=== PATIENT | female | born 1965 | race Caucasian/White ===

== ENCOUNTER 2016-11-27 20:40 | Emergency (ER) | payer MEDICARE, OTHER ==
[~2016-11-27] VITALS: Ht 165.1 cm; Wt 86.2 kg
[~2016-11-27 20:40] MED LIST: ALPR1T PO; ATOR20TA66 PO; ATOR40TA70 PO; CYCL10TA9 PO; DULO60CA6 PO; ESTR1TAB24 PO; HYDR-3820 PO; HYDR118S10 PO; MELO15TA14 PO; ONDA8TAB13 PO; PNT40TEC PO; PRD20T PO; ROPI2TAB PO; TRAZ150T42 PO; ZOLP10TA5 PO
[2016-11-27] MEDS ORDERED: KETOROLAC 30 MG/ML VIAL IVP STA (21:03)
[2016-11-27] MEDS ORDERED: LACTATED RINGERS 1,000 ML IV ONE (21:03)
[2016-11-27] MEDS ORDERED: ONDANSETRON 4 MG/2 ML (SDV) Z0FRAN IVP ONE (21:15)
[2016-11-27 21:24] LABS: BILIRUBIN,URINE NEGATIVE (NEGATIVE); KETONES,URINE NEGATIVE (NEGATIVE); LEUKOCYTE ESTERASE ,URINE NEGATIVE (NEGATIVE); NITRITE,URINE NEGATIVE (NEGATIVE); PH,URINE 6 (5-9); PROTEIN,URINE NEGATIVE (NEGATIVE); UROBILINOGEN,URINE NORMAL (NORMAL)
[2016-11-27 21:28] LABS: BASOPHILS % (AUTO) 0 % (0-10); EOSINOPHILS # (AUTO) 0.1 10^3/uL (0.0-0.3); EOSINOPHILS % (AUTO) 1 % (0-10); LYMPHOCYTES # (AUTO) 2.1 X 10^3 (1.0-4.0); LYMPHOCYTES % (AUTO) 35 % (12-44); MEAN CORPUSCULAR HEMOGLOBIN 31 PG (25-34); MEAN CORPUSCULAR HGB CONC 35 G/DL (32-36); MEAN CORPUSCULAR VOLUME 90 FL (80-99); MEAN PLATELET VOLUME 10.7 FL (7.4-10.4); MONOCYTES # (AUTO) 0.5 X 10^3 (0.0-1.0); MONOCYTES % (AUTO) 9 % (0-12); NEUTROPHILS # (AUTO) 3.3 X 10^3 (1.8-7.8); NEUTROPHILS % (AUTO) 55 % (42-75); PLATELET COUNT 226 10^3/uL (130-400); RED BLOOD COUNT 4.34 10^6/uL (4.35-5.85); RED CELL DISTRIBUTION WIDTH 12.4 % (10.0-14.5)
[2016-11-27 21:37] LABS: ALBUMIN 4.2 G/DL (3.2-4.5); BILIRUBIN,TOTAL 0.5 MG/DL (0.1-1.0); CALCIUM 8.9 MG/DL (8.5-10.1); POTASSIUM 3.1 MMOL/L (3.6-5.0); TOTAL PROTEIN 6.5 G/DL (6.4-8.2)
--- NOTE | 2016-11-27 21:40 | Diagnostic Imaging Report ---
PROCEDURE: CT urinary tract, rule out kidney stone. TECHNIQUE: Multiple contiguous axial images were obtained through the abdomen and pelvis without the use of intravenous contrast. INDICATION: Back pain. Nausea The gallbladder is absent. The liver and bile ducts are normal. The spleen, pancreas and adrenals are normal. The kidneys, ureters and bladder are normal. There is no pelvic mass. There are scattered diverticula seen in the colon with no evidence of diverticulitis or other acute bowel abnormality. There is no free intraperitoneal air or fluid. IMPRESSION: No acute abnormality is seen. Dictated by: Dictated on workstation # [id number]
--- NOTE | 2016-11-27 21:42 | Diagnostic Imaging Report ---
INDICATION: Abdominal pain The upright chest shows no abnormality. Supine and upright views of the abdomen shows normal bowel gas pattern. There is no free intraperitoneal air. There is no mass or calculus. There is no acute bony abnormality. IMPRESSION: No acute abnormality is seen. Dictated by: Dictated on workstation # [id number]
--- NOTE | 2016-11-27 21:46 | ED Back Pain ---
General Chief Complaint: Back Problems Stated Complaint: STOMACH/BACK PAIN Nursing Triage Note: PT C/O L FLANK PAIN RADIATING TO HER LLQ SINCE THIS AM. SHE IS ALSO C/O NAUSEA, BUT DENIES VOMITING. PT DENIES DYSURIA,HEMATURIA, OR FREQUENCY. Nursing Sepsis Screen: No Definite Risk Source of Information: Patient History of Present Illness Time Seen by Provider: 20:58 Initial Comments PT C/O LEFT FLANK PAIN, RADIATING TO LLQ SINCE WAKING AT 0400 THIS AM + NAUSEA, NO VOMITING. NO DIARRHEA NO FEVER NO URINARY SYMPTOMS PT HAS CHRONIC BACK PAIN, NECK PAIN AND GENERALIZED PAIN AND TAKES MORPHINE, HYDROCODONE, DILAUDID ( AT LEAST OF 08/15/2016) , MOBIC, CYCLOBENZAPRINE --- STATES SHE HAS NOT TAKEN ANY OF HER MEDICATIONS TODAY--GIVES NO REASON TO WHY NOT PT STATES SHE HAS NOT RAN OUT OF HER PAIN MEDICATIONS--PER [facility], PT FILLED MORPHINE 30 MG #30 ON 11/05/16 AND LORTAB 10/325 #120 ON 11/05/[address] RO IN [place] Allergies and Home Medications Allergies Coded Allergies: niacin (Unverified Allergy, Unknown, 01/28/14) gabapentin (Unverified Adverse Reaction, Unknown, 07/13/15) Home Medications Alprazolam 1 Mg Tab, 1 MG PO BID PRN for ANXIETY, (Reported) Atorvastatin Calcium 20 Mg Tablet, 20 MG PO DAILY, (Reported) Atorvastatin Calcium 40 Mg Tablet, 40 MG PO DAILY, #90 (Reported) Cyclobenzaprine HCl 10 Mg Tablet, 10 MG PO Q8H, #15 Prescribed by: EDEN FREEMAN on 12/27/15 1329 Estradiol 1 Mg Tablet, 1 MG PO DAILY, (Reported) Hydrocodone/Acetaminophen 1 Each Tablet, 1 EACH PO QID PRN for PAIN, (Reported) Meloxicam 15 Mg Tablet, 15 MG PO DAILY, #10 Prescribed by: EDEN FREEMAN on 12/27/15 1329 Ondansetron 8 Mg Tab.rapdis, 8 MG PO Q6H PRN for NAUSEA/VOMITING, #10 Ref 0 Prescribed by: LAUREANO VAZ on 07/13/151999 Pantoprazole Sodium 40 Mg Tablet.dr, 1 TAB PO DAILY, #30 Prescribed by: MOSES MATUTE on 02/01/14 1107 Ropinirole Hcl 2 Mg Tab.sr.24h, 2 MG PO HS, (Reported) Trazodone Hcl Unknown Strength Tablet, 150 MG PO HS PRN for SLEEP, (Reported) Zolpidem Tartrate 10 Mg Tablet, 10 MG PO HS PRN for INSOMNIA, #30 (Reported) Constitutional: no symptoms reported Respiratory: no symptoms reported Cardiovascular: no symptoms reported Gastrointestinal: LLQ, see HPI, abdominal pain, No constipation, No diarrhea, nausea, No vomiting Genitourinary: no symptoms reported Control/STD Prophylaxis: Other (HYST) Musculoskeletal: see HPI, back pain Skin: no symptoms reported, No rash Psychiatric/Neurological: No Symptoms Reported Past Tmvjyia-Ymeogi-Shpxvy Hx Patient Social History Alcohol Use: Denies Use Recreational Drug Use: No Smoking Status: Never a Smoker 2nd Hand Smoke Exposure: No Recent Foreign Travel: No Contact w/Someone Who Travel: No Recent Infectious Disease Expo: No Recent Hopitalizations: No Immunizations Up To Date Date of Influenza Vaccine: Jun 15, 2015 Seasonal Allergies Seasonal Allergies: Yes Surgeries HX Surgeries: Yes (SPINAL FUSION, back surgery x 3, neck surgery x 1, STOMACH "CYSTS" ; HYST /BSO--2 SURGERIES) Surgeries: Appendectomy, Gallbladder, Hysterectomy, Oophorectomy, Orthopedic, Tubal Ligation Respiratory Hx Respiratory Disorders: No Cardiovascular Hx Cardiac Disorders: Yes Cardiac Disorders: Chronic Edema/Swelling, High Cholesterol Neurological Hx Neurological Disorders: Yes (CHRONIC NUMBNESS/TINGLING LEFT 4TH AND F5TH FINGERS) 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 ) Genitourinary Disorders: Renal Failure Gastrointestinal Hx Gastrointestinal Disorders: Yes ("CYSTS" REMOVED FROM STOMACH) Musculoskeletal Hx Musculoskeletal Disorders: Yes (CHRONIC NECK PAIN; RESTLESS LEG SYNDROME) Musculoskeletal Disorders: Degenerate Disk Disease, Chronic Back Pain Endocrine Hx Endocrine Disorders: No HEENT HX ENT Disorders: No Cancer Hx Cancer: No Psychosocial Hx Psychiatric Problems: Yes (OVERDOSED IN PAST, REQUIRING DIALYSIS) Behavioral Health Disorders: Sleep Difficulties, Anxiety Integumentary HX Skin/Integumentary Disorder: No Blood Transfusions Hx Blood Disorders: No Family Medical History Significant Family History: No Pertinent Family Hx Physical Exam Vital Signs Vital Sign - Last 12Hours 11/27/16 20:55 Temp 98.9 Pulse 98 Resp 20 B/P (MAP) 172/108 Pulse Ox 97 O2 Delivery Room Air Capillary Refill : Less Than 3 Seconds General Appearance: No Apparent Distress, WD/WN Neck: Full Range of Motion, Normal Inspection, Non Tender, Supple Cardiovascular: Regular Rate, Rhythm, No Edema, No JVD, No Murmur, Normal Peripheral Pulses Respiratory: Normal Breath Sounds, No Accessory Muscle Use, No Respiratory Distress Gastrointestinal: Normal Bowel Sounds, No Organomegaly, No Pulsatile Mass, Soft , No Distended, No Guarding, Tenderness (LLQ, LEFT FLANK) Back: CVA Tenderness (L) Extremity: Normal Capillary Refill, Normal Inspection, Normal Range of Motion, Non Tender, No Calf Tenderness Neurologic/Psychiatric: Alert, Oriented x3, No Motor/Sensory Deficits, Normal Mood/Affect, replacer II-XII Norm as Tested Skin: Normal Color, Warm/Dry, No Rash Progress/Results/Core Measures Results/Orders Lab Results Laboratory Tests Test 11/27/16 21:00 11/27/16 21:17 Range/Units White Blood Count 6.0 4.3-11.0 10^3/uL Red Blood Count 4.34 L 4.35-5.85 10^6/uL Hemoglobin 13.6 11.5-16.0 G/DL Hematocrit 39 35-52 % Mean Corpuscular Volume 90 80-99 FL Mean Corpuscular Hemoglobin 31 25-34 PG Mean Corpuscular Hemoglobin Concent 35 32-36 G/DL Red Cell Distribution Width 12.4 10.0-14.5 % Platelet Count 226 130-400 10^3/uL Mean Platelet Volume 10.7 H 7.4-10.4 FL Neutrophils (%) (Auto) 55 42-75 % Lymphocytes (%) (Auto) 35 12-44 % Monocytes (%) (Auto) 9 0-12 % Eosinophils (%) (Auto) 1 0-10 % Basophils (%) (Auto) 0 0-10 % Neutrophils # (Auto) 3.3 1.8-7.8 X 10^3 Lymphocytes # (Auto) 2.1 1.0-4.0 X 10^3 Monocytes # (Auto) 0.5 0.0-1.0 X 10^3 Eosinophils # (Auto) 0.1 0.0-0.3 10^3/uL Basophils # (Auto) 0.0 0.0-0.1 10^3/uL Sodium Level 140 135-145 MMOL/L Potassium Level 3.1 L 3.6-5.0 MMOL/L Chloride Level 103 98-107 MMOL/L Carbon Dioxide Level 25 21-32 MMOL/L Anion Gap 12 5-14 MMOL/L Blood Urea Nitrogen 13 7-18 MG/DL Creatinine 1.00 0.60-1.30 MG/DL Estimat Glomerular Filtration Rate 59 BUN/Creatinine Ratio 13 Glucose Level 125 H 70-105 MG/DL Calcium Level 8.9 8.5-10.1 MG/DL Total Bilirubin 0.5 0.1-1.0 MG/DL Aspartate Amino Transf (AST/SGOT) 16 5-34 U/L Alanine Aminotransferase (ALT/SGPT) 18 0-55 U/L Alkaline Phosphatase 75 40-136 U/L Total Protein 6.5 6.4-8.2 G/DL Albumin 4.2 3.2-4.5 G/DL Amylase Level 85 25-125 U/L Lipase 40 8-78 U/L Urine Color YELLOW Urine Clarity SLIGHTLY CLOUDY Urine pH 6 5-9 Urine Specific Reading 1.015 L 1.016-1.022 Urine Protein NEGATIVE NEGATIVE Urine Glucose (UA) NEGATIVE NEGATIVE Urine Ketones NEGATIVE NEGATIVE Urine Nitrite NEGATIVE NEGATIVE Urine Bilirubin NEGATIVE NEGATIVE Urine Urobilinogen NORMAL NORMAL MG/DL Urine Leukocyte Esterase NEGATIVE NEGATIVE Urine RBC (Auto) NEGATIVE NEGATIVE Urine RBC NONE /HPF Urine WBC NONE /HPF Urine Squamous Epithelial Cells 10-25 H /HPF Urine Crystals NONE /LPF Urine Bacteria TRACE /HPF Urine Casts NONE /LPF Urine Mucus NEGATIVE /LPF Urine Culture Indicated NO Urine Opiates Screen POSITIVE H NEGATIVE Urine Oxycodone Screen NEGATIVE NEGATIVE Urine Methadone Screen NEGATIVE NEGATIVE Urine Propoxyphene Screen NEGATIVE NEGATIVE Urine Barbiturates Screen NEGATIVE NEGATIVE Ur Tricyclic Antidepressants Screen NEGATIVE NEGATIVE Urine Phencyclidine Screen NEGATIVE NEGATIVE Urine Amphetamines Screen NEGATIVE NEGATIVE Urine Methamphetamines Screen NEGATIVE NEGATIVE Urine Benzodiazepines Screen POSITIVE H NEGATIVE Urine Cocaine Screen NEGATIVE NEGATIVE Urine Cannabinoids Screen NEGATIVE NEGATIVE My Orders Orders - EDEN FREEMAN DO Ct Abd/Pelvis Wo(Kidney Stone) (11/27/16 21:03) Amylase (11/27/16 21:03) Cbc With Automated Diff (11/27/16 21:03) Comprehensive Metabolic Panel (11/27/16 21:03) Lipase (11/27/16 21:03) Ua Culture If Indicated (11/27/16 21:03) Acute Abd Series (11/27/16 21:03) Saline Lock/Iv-Start (11/27/16 21:03) Lactated Ringers (Lr 1000 Ml Iv Solution (11/27/16 21:03) Ondansetron Injection (Zofran Injectio (11/27/16 21:15) Ketorolac Injection (Toradol Injection) (11/27/16 21:03) Drug Screen Stat (Urine) (11/27/16 21:31) Orphenadrine Injection (Norflex Injectio (11/27/16 22:00) Medications Given in ED Current Medications Medications Dose Ordered Sig/Rajan Route Start Time Stop Time Status Last Admin Dose Admin Lactated Ringer's 1,000 ml @ 0 mls/hr Q0M ONCE IV 11/27/16 21:03 11/27/16 21:09 DC 11/27/16 21:25 0 MLS/HR Ondansetron HCl 4 mg ONCE ONCE IVP 11/27/16 21:15 11/27/16 21:16 DC 11/27/16 21:25 4 MG Orphenadrine Citrate 60 mg ONCE ONCE IV 11/27/16 22:00 11/27/16 22:01 DC 11/27/16 22:03 60 MG Vital Signs/I&O Vital Sign - Last 12Hours 11/27/16 11/27/16 20:55 22:25 Temp 98.9 98.9 Pulse 98 90 Resp 20 20 B/P (MAP) 172/108 Pulse Ox 97 97 O2 Delivery Room Air Intake and Output 11/28/16 00:00 Intake Total 1000 ml Balance 1000 ml Blood Pressure Mean: 129 Progress Note : Progress Note UNEVENTFUL ER STAY Diagnostic Imaging Comments ACUTE ABDOMEN XRAYS--NO ACUTE PROCESS CT ABDOMEN/PELVIS--NO ACUTE PROCESS PER RADIOLOGIST REPORTS @ 2147 Reviewed: Reviewed by Me Departure Impression Impression: Primary Impression: Left flank pain Additional Impression: LLQ pain Disposition: 01 HOME, SELF-CARE Condition: Stable Departure-Patient Inst. Referrals: MARIA ISABEL RO DO (PCP/Family) Primary Care Physician Patient Instructions: Acute Abdomen (Belly Pain), Adult (DC), Flank Pain (DC) Add. Discharge Instructions: CONTINUE YOUR REGULAR MEDICATIONS PRESCRIBED MOIST HEAT TO AREA AT 20 MINUTE INTERVALS ACTIVITIES TOLERATED FOLLOW UP WITH YOUR DR NEXT WEEK SCHEDULED All discharge instructions reviewed with patient and/or family. Voiced understanding. EDEN FREEMAN DO Nov 27, 2016 21:46
[2016-11-27] MEDS ORDERED: ORPHENADRINE 60 MG/2 ML (NORFLEX) AMP IV ONE (22:00)
[2016-11-27 22:25] VITALS: BP 165/99
== END 2016-11-27 22:25 | disposition home or self-care (01) ==
LOC: EDUNIT# 20:40 → ER 20:41
DX: R10.32 Left lower quadrant pain (principal); M54.5 Low back pain; M54.2 Cervicalgia; G89.29 Other chronic pain; Z79.891 Long term (current) use of opiate analgesic; Z98.1 Arthrodesis status
CPT/HCPCS: 36415; 74022; 74176; 80053; 80306; 81000; 82150; 83690; 85025; 96361; 96374; 96375

== ENCOUNTER 2017-04-18 12:38 | Emergency (ER) | payer MEDICARE, OTHER ==
[~2017-04-18] VITALS: Ht 165.1 cm; Wt 86.2 kg
--- NOTE | 2017-04-18 13:46 | ED Hip Pain/Injury ---
General Chief Complaint: Hip/Pelvic Problems Stated Complaint: LT HIP/LT KNEE--FALL Nursing Triage Note: pt reports she fell saturday while in the bathroom and injured l knee and l hip. pt denies loc but reports continued hip. Source: patient, family (son) Exam Limitations: no limitations History of Present Illness Time seen by provider: 13:41 Initial Comments Patient presents to ER with a chief complaint of pain in her left hip laterally as well as her left knee. She sustained a fall that for the morning while getting up to the bathroom just after and pitting she says her left leg gave out from underneath her. She landed on her left side. She did not strike her head or lose consciousness. She has a history of 4 surgeries on her neck and 3 surgeries on her lumbar spine. She is not having any pain in her back no new numbness tingling or incontinence. She has had a history of bursitis in her left hip. Her pain in her left knee is directly over the patella. She is able to walk with a limp. No dysuria, discharge, fever, nausea, headache, dizziness. Allergies and Home Medications Allergies Coded Allergies: niacin (Unverified Allergy, Unknown, 01/28/14) gabapentin (Unverified Adverse Reaction, Unknown, 07/13/15) Home Medications Alprazolam 1 Mg Tab, 1 MG PO BID PRN for ANXIETY, (Reported) Atorvastatin Calcium 20 Mg Tablet, 20 MG PO DAILY, (Reported) Atorvastatin Calcium 40 Mg Tablet, 40 MG PO DAILY, #90 (Reported) Cyclobenzaprine HCl 10 Mg Tablet, 10 MG PO Q8H, #15 Prescribed by: EDEN FREEMAN on 12/27/15 1329 Estradiol 1 Mg Tablet, 1 MG PO DAILY, (Reported) Hydrocodone/Acetaminophen 1 Each Tablet, 1 EACH PO QID PRN for PAIN, (Reported) Meloxicam 15 Mg Tablet, 15 MG PO DAILY, #10 Prescribed by: EDEN FREEMAN on 12/27/15 1329 Ondansetron 8 Mg Tab.rapdis, 8 MG PO Q6H PRN for NAUSEA/VOMITING, #10 Ref 0 Prescribed by: LAUREANO VAZ on 07/13/151999 Pantoprazole Sodium 40 Mg Tablet.dr, 1 TAB PO DAILY, #30 Prescribed by: MOSES MATUTE on 02/01/14 1107 Ropinirole Hcl 2 Mg Tab.sr.24h, 2 MG PO HS, (Reported) Trazodone Hcl Unknown Strength Tablet, 150 MG PO HS PRN for SLEEP, (Reported) Zolpidem Tartrate 10 Mg Tablet, 10 MG PO HS PRN for INSOMNIA, #30 (Reported) Constitutional: No chills, No diaphoresis EENTM: No ear pain, No eye pain Respiratory: No cough, No short of breath Cardiovascular: No chest pain, No palpitations Gastrointestinal: No abdominal pain, No constipation, No diarrhea, No nausea Genitourinary: No discharge, No dysuria : No (hysterectomy) Control/STD Prophylaxis: Other (hysterectomy) Musculoskeletal: see HPI, back pain, joint pain (left hip and left knee) Skin: No pruritus, No rash, other Psychiatric/Neurological: Denies Headache, Denies Numbness, Denies Paresthesia Past Rlaiqma-Omtwfc-Xtniyn Hx Patient Social History Alcohol Use: Denies Use Recreational Drug Use: No Smoking Status: Former Smoker 2nd Hand Smoke Exposure: No Recent Foreign Travel: No Contact w/Someone Who Travel: No Recent Infectious Disease Expo: No Recent Hopitalizations: No Physical Abuse: No Sexual Abuse: No Mistreated: No Fear: No Immunizations Up To Date Date of Influenza Vaccine: Jun 15, 2015 Seasonal Allergies Seasonal Allergies: Yes Surgeries Surgeries: Appendectomy, Gallbladder, Hysterectomy, Oophorectomy, Orthopedic, Tubal Ligation Cardiovascular Cardiac Disorders: Chronic Edema/Swelling, High Cholesterol 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 Genitourinary Genitourinary Disorders: Renal Failure Musculoskeletal Musculoskeletal Disorders: Degenerate Disk Disease, Chronic Back Pain Psychosocial Behavioral Health Disorders: Sleep Difficulties, Anxiety Suicide Risk Score: 0 Family Medical History Significant Family History: No Pertinent Family Hx Physical Exam Vital Signs Vital Sign - Last 12Hours 04/18/17 13:16 Temp 97.6 Pulse 107 Resp 18 B/P (MAP) 101/91 Pulse Ox 94 O2 Delivery Room Air Capillary Refill : Less Than 3 Seconds General Appearance: WD/WN, Mild Distress HEENT: PERRL/EOMI, Pharynx Normal Neck: Full Range of Motion, Supple Cardiovascular: Regular Rate, Rhythm, Normal Peripheral Pulses Respiratory: Lungs Clear, Normal Breath Sounds Peripheral Pulses: 2+ Dorsalis Pedis (R), 2+ Left Dors-Pedis (L) Gastrointestinal: Normal Bowel Sounds, Non Tender, Soft Back: Normal Inspection, No Vertebral Tenderness, Other (well-healed surgical scars along the back) Extremity: Normal Capillary Refill, No Pedal Edema, Other (range of motion of left knee limited secondary to pain but full. Pain directly to palpation over patella but not the suprapatellar or infrapatellar tendon ligament. Hip pain is over the lateral aspect over the greater trochanter of the left hip.) Neurologic/Psychiatric: Alert, Oriented x3 Skin: Normal Color, Warm/Dry Progress/Results/Core Measures Results/Orders My Orders Orders - YCRIL DUFFY Knee, Left, 3 Views (04/18/17 13:40) Hip, Left, 2 Views (04/18/17 13:40) Vital Signs/I&O Vital Sign - Last 12Hours 04/18/17 13:16 Temp 97.6 Pulse 107 Resp 18 B/P (MAP) 101/91 Pulse Ox 94 O2 Delivery Room Air Blood Pressure Mean: 94 Progress Note : Time: 14:06 Progress Note Greater trochanteric bursitis is most likely explanation. We'll x-ray her hip and knee make sure is no fractures. Diagnostic Imaging Diagonstic Imaging: Xray Plain Films/CT/US/NM/MRI: hip Comments VIA [facility]. [place], [place] NAME: MERCEDES KOL[facility] REC#: [id number] PT STATUS: REG ER : 1965 PHYSICIAN: CYRIL DUFFY MD ADMIT DATE: 04/18/17/ER Draft Date of Exam:04/18/17 HIP, LEFT, 2 VIEWS INDICATION: Left hip pain. EXAMINATION: AP and oblique views of the left hip are obtained. FINDINGS: No fracture or acute bony abnormality is seen. There is mild degenerative change of the acetabulum. There is no lytic or blastic lesion. IMPRESSION: Mild degenerative change of the left hip involving the acetabulum. No acute fracture or lytic or blastic lesion. Dictated on workstation # [id number] Dict: 04/18/17 1413 Trans: 04/18/17 1423 [facility] [id number] Interpreted by: CHRIS GAGNON MD Electronically signed by: Reviewed: Reviewed by Me Diagonstic Imaging: Xray Plain Films/CT/US/NM/MRI: knee Comments NAME: MERCEDES KOL[facility] REC#: [id number] PHYSICIAN: CYRIL DUFFY MD CC: EMILIANA EMANUEL MD; CYRIL DUFFY Page 1 of 1 RADIOLOGY REPORT VIA [facility]. [place], [place] CC: EMILIANA EMANUEL MD; CYRIL DUFFY Page 1 of 1 RADIOLOGY REPORT NAME: MERCEDES KOL[facility] REC#: [id number] PT STATUS: REG ER : 1965 PHYSICIAN: CYRIL DUFFY MD ADMIT DATE: 04/18/17/ER Signed Date of Exam: 04/18/17 KNEE, LEFT, 3 VIEWS KNEE, LEFT, 3 VIEWS COMPARISON: None available. INDICATION: Left knee pain after fall. TECHNIQUE: Non-weight bearing AP, oblique, and lateral views of the left knee. FINDINGS: No fracture or traumatic malalignment. The joint spaces are well maintained. No knee joint effusion. IMPRESSION: Negative left knee radiographs. Dictated by: Dictated on workstation # [id number] Dict: 04/18/17 1416 Trans: 04/18/17 141 Interpreted by: EMILIANA EMANUEL MD Electronically signed by: EMILIANA EMANUEL MD 04/18/171416 Reviewed: Reviewed by Me Departure Impression Impression: Primary Impression: Fall Qualified Codes: W19.XXXA - Unspecified fall, initial encounter Additional Impression: Greater trochanteric bursitis of left hip Disposition: 01 HOME, SELF-CARE Condition: Stable Departure-Patient Inst. Decision time for Depature: 14:44 Referrals: MARIA ISABEL RO DO (PCP/Family) Primary Care Physician Patient Instructions: Hip Bursitis (DC) Add. Discharge Instructions: You have bursitis in her hip which can be treated with Aistrup Edvin over the site for 20 minutes every 4-6 hours as needed. Continue taking the meloxicam. Use Tylenol and or other pain medicines as needed. Stay active stretch it out and keep your hip moving. 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 If it is not getting better in a couple of weeks then you should follow up with her primary care physician to talk talk about maybe injecting the bursa or a trial of physical therapy or other modalities. Your knee appears to be bruised but not broken. This will probably be 4-6 weeks before it completely healed. You can use elevation by keeping the knee above the level of your heart, resting it, icing it just like the hip and finally a compression dressing such as a Gregory bandage. All discharge instructions reviewed with patient and/or family. Voiced understanding. Scripts Prednisone (Prednisone) 20 Mg Tab 20 MG PO DAILY for 5 Days, #5 TAB 0 Refills Prov: CYRIL DUFFY 04/18/17 CYRIL DUFFY Apr 18, 2017 13:46
--- NOTE | 2017-04-18 14:19 | Diagnostic Imaging Report ---
KNEE, LEFT, 3 VIEWS COMPARISON: None available. INDICATION: Left knee pain after fall. TECHNIQUE: Non-weight bearing AP, oblique, and lateral views of the left knee. FINDINGS: No fracture or traumatic malalignment. The joint spaces are well maintained. No knee joint effusion. IMPRESSION: Negative left knee radiographs. Dictated by: Dictated on workstation # [id number]
--- NOTE | 2017-04-18 14:24 | Diagnostic Imaging Report ---
INDICATION: Left hip pain. EXAMINATION: AP and oblique views of the left hip are obtained. FINDINGS: No fracture or acute bony abnormality is seen. There is mild degenerative change of the acetabulum. There is no lytic or blastic lesion. IMPRESSION: Mild degenerative change of the left hip involving the acetabulum. No acute fracture or lytic or blastic lesion. Dictated by: Dictated on workstation # [id number]
[2017-04-18] MEDS ORDERED: PRD20T PO (14:54)
[2017-04-18 15:00] VITALS: BP 123/90
== END 2017-04-18 15:01 | disposition home or self-care (01) ==
LOC: EDUNIT# 12:38 → ER 12:41
DX: M70.62 Trochanteric bursitis, left hip (principal); F41.9 Anxiety disorder, unspecified; E78.00 Pure hypercholesterolemia, unspecified; G47.9 Sleep disorder, unspecified; M47.9 Spondylosis, unspecified; Z90.710 Acquired absence of both cervix and uterus; Z98.51 Tubal ligation status; Z90.49 Acquired absence of other specified parts of digestive tract; Z87.891 Personal history of nicotine dependence; Z98.890 Other specified postprocedural states; W18.30XA Fall on same level, unspecified, initial encounter; Y92.002 Bathroom of unspecified non-institutional (private) residence as the place of occurrence of the external cause
CPT/HCPCS: 73502; 73562; 99283